=== PATIENT | female | born 1965 | race Caucasian/White ===

== ENCOUNTER 2016-08-29 18:16 | Emergency (ER) | payer OTHER ==
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
[~2016-08-29 18:16] MED LIST: ABILIFY; ATENOLOL; CELEXA
== END 2016-08-29 20:41 | disposition home or self-care (01) ==
LOC: SED 18:16
DX: S86.911A Strain of unspecified muscle(s) and tendon(s) at lower leg level, right leg, initial encounter (principal); I10 Essential (primary) hypertension; E78.5 Hyperlipidemia, unspecified; X58.XXXA Exposure to other specified factors, initial encounter; Y92.009 Unspecified place in unspecified non-institutional (private) residence as the place of occurrence of the external cause
CPT/HCPCS: 73562; 99283